=== PATIENT | female | born 1975 | race Caucasian/White ===

== ENCOUNTER 2016-05-18 03:07 | Emergency (ER) | payer OTHER ==
[~2016-05-18] VITALS: Ht 152.4 cm; Wt 63.2 kg
[2016-05-18 04:41] VITALS: BP 111/60
== END 2016-05-18 04:43 | disposition home or self-care (01) ==
LOC: ED 03:20
DX: S39.012A Strain of muscle, fascia and tendon of lower back, initial encounter (principal); X50.0XXA Overexertion from strenuous movement or load, initial encounter; Y93.F2 Activity, caregiving, lifting; Y92.238 Other place in hospital as the place of occurrence of the external cause; Y99.0 Civilian activity done for income or pay
CPT/HCPCS: 99281; 99282

== ENCOUNTER → 2016-05-18 | Outpatient (REF) | LOC: EUOP 03:23 | PROVIDERS: ATTEND Emergency Medicine | DX: Z02.89 Encounter for other administrative examinations (principal); Z02.83 Encounter for blood-alcohol and blood-drug test ==

== ENCOUNTER → 2016-05-25 | Outpatient (REF) | payer OTHER | LOC: LAB 19:09 → EDSTATUS 19:14 → LAB 19:14 → CLAB.CORPH 19:15 | PROVIDERS: ATTEND Family Medicine | DX: Z01.89 Encounter for other specified special examinations (principal) | CPT/HCPCS: 86706 ==